=== PATIENT | male | born 1985 | race Caucasian/White ===

== ENCOUNTER 2016-12-08 19:39 | Emergency (ER) | payer MEDICAID ==
[~2016-12-08] VITALS: Ht 165.1 cm; Wt 81.5 kg
[~2016-12-08 19:39] MED LIST: IBUP800T25 PO; NAPR-688 PO; ONDA-43 PO; OXYC-281 PO
[2016-12-08 19:44] VITALS: Ht 165.1 cm; Wt 81.5 kg
[2016-12-08] MEDS ORDERED: SOD CHLORIDE 0.9% 1,000 ML IV STA (21:27)
[2016-12-08] MEDS ORDERED: KETOROLAC 30 MG INJ IV STA (21:27)
[2016-12-08] MEDS ORDERED: morphine 4 MG/ML VIAL IV STA (22:40)
--- NOTE | 2016-12-08 22:41 | RADRPT ---
PROCEDURE: Renal US. CLINICAL INDICATION: Flank pain. TECHNIQUE: Multiple sonographic images of the kidneys and urinary bladder were obtained. The imag es were reviewed on a PACS workstation. COMPARISON: No prior studies are available for comparison. FINDINGS: The kidneys are well visualized. The right kidney measures 12.9 cm. The left kidney measures 12.5 cm . There is mild right hydronephrosis. Multiple nonobstructing stones are noted in the right kidney. The urinary bladder is normal in appearance. IMPRESSION: 1. Mild right hydronephrosis. 2. Multiple nonobstructing stones in the right kidney. 3. Normal appearance of the left kidney and urinary bladder. RPTAT: HTAR .Gold Guido MD, Date Time Electronically viewed and signed by .Gold Guido MD, MD on 12/08/2016 22:40 .R/
[2016-12-08] MEDS ORDERED: CIPR500T4 PO (23:04)
[2016-12-08] MEDS ORDERED: ONDA4TAB14 PO (23:04)
[2016-12-08] MEDS ORDERED: IBUP-1542 PO (23:04)
[2016-12-08] MEDS ORDERED: HYDR-906 PO (23:04)
--- NOTE | 2016-12-08 23:26 | ERD ---
ER Documentation Chief Complaint Chief Complaint right flank pain x 4 days HPI Patient is a 31-year-old male with past medical history of bilateral nephrolithiasis who presents to the emergency department for concerns of right- sided flank pain and dysuria 4 days. States he had bilateral kidney stones 1.5 years ago. Patient states his pain feels the same as his previous kidney stone episode. Patient states the pain originates in his right flank and radiates down into his groin. Patient denies any nausea, vomiting, fever or chills. Patient does admit to dysuria however he denies any frequency urgency or hematuria. Denies any falls or trauma. Patient denies any lower back pain , saddle anesthesia, urinary incontinence, stool incontinence. ROS All systems reviewed and are negative except as per history of present illness. Medications Home Meds Active Scripts Ciprofloxacin Hcl* (Ciprofloxacin Hcl*) 500 Mg Tablet, 500 MG PO BID for 10 Days , TAB Prov:DAYAMI SANCHEZ PA-C 12/08/16 Ondansetron (Ondansetron Odt) 4 Mg Tab.rapdis, 4 MG PO Q6H Y for NAUSEA AND/OR VOMITING, #10 TAB Prov:DAYAMI SANCHEZ PA-C 12/08/16 Hydrocodone/Acetaminophen (Suring 5-325 Tablet) 1 Each Tablet, 1 TAB PO Q6H Y for PAIN, #7 TAB Prov:DAYAMI SANCHEZ PA-C 12/08/16 Ibuprofen* (Motrin*) 600 Mg Tab, 600 MG PO Q6, #20 TAB Prov:DAYAMI SANCHEZ PA-C 12/08/16 Naproxen* (Naproxen*) 500 Mg Tablet, 500 MG PO BID Y for PAIN, #30 TAB Prov:RAMYA HOLBROOK MD 08/19/14 Ondansetron Hcl* (Zofran*) 4 Mg Tab, 4 MG PO TID Y for NAUSEA AND OR VOMITING, # 14 TAB Prov:RAMYA HOLBROOK MD 08/19/14 Oxycodone Hcl-Acetaminophen* (Percocet*) 5-325 Mg Tablet, 1 TAB PO Q4H Y for PAIN, #12 TAB Prov:RAMYA HOLBROOK MD 08/19/14 Reported Medications Ibuprofen* (Ibuprofen*) 800 Mg Tab, 800 MG PO Q8 Y for PAIN, TAB 7/3/15 Allergies Allergies: Coded Allergies: No Known Allergy (Unverified , 12/08/16) PMhx/Soc History of Surgery: No Anesthesia Reaction: No Hx Neurological Disorder: No Hx Respiratory Disorders: No Hx Cardiac Disorders: No Hx Psychiatric Problems: No Hx Miscellaneous Medical Probl: Yes (KIDNEY STONES ) Hx Alcohol Use: Yes Hx Substance Use: No Hx Tobacco Use: No Smoking Status: Never smoker Physical Exam Vitals Vital Signs Date Time Temp Pulse Resp B/P Pulse Ox O2 Delivery O2 Flow Rate FiO2 12/08/16 19:44 98.7 92 20 136/83 99 Physical Exam GENERAL: Well-developed, well-nourished male. Appears in no acute distress. Aching in full sentences. HEAD: Normocephalic, atraumatic. EYES: Pupils are equally reactive bilaterally. EOMs grossly intact. No conjunctival erythema. ENT: Moist mucous membranes. No uvula deviation. No kissing tonsils. NECK: Supple. No meningismus. Normal range of motion of the neck. LUNG: Clear to auscultation bilaterally. No rhonchi, wheezing, rales or coarse breath sounds. HEART: Regular rate and rhythm. No murmurs, rubs or gallops. ABDOMEN: No scars, ecchymosis or rashes noted. Soft, nontender, and nondistended. Positive bowel sounds in all four quadrants. No rebound tenderness , no guarding. (-) McBurney's point tenderness. R sided CVA tenderness. BACK: No midline tenderness. EXTREMITIES: Equal pulses bilaterally. No peripheral clubbing, cyanosis or edema. No unilateral leg swelling. NEUROLOGIC: Alert and oriented. Moving all four extremities without any difficulty. Normal speech. Steady gait. SKIN: Normal color. Warm and dry. No rashes or lesions. Result Diagram: 12/08/16214412/08/162144 Results 24 hrs Laboratory Tests Test 12/08/16 21:45 White Blood Count 18.410^3/ul Red Blood Count 5.7010^6/ul Hemoglobin 16.4g/dl Hematocrit 50.9% Mean Corpuscular Volume 89.3fl Mean Corpuscular Hemoglobin 28.8pg Mean Corpuscular Hemoglobin Concent 32.2g/dl Red Cell Distribution Width 12.7% Platelet Count 87686^3/UL Mean Platelet Volume 11.4fl Neutrophils % 72.4% Lymphocytes % 17.4% Monocytes % 7.5% Eosinophils % 2.0% Basophils % 0.3% Nucleated Red Blood Cells % 0.0/100WBC Neutrophils # 13.310^3/ul Lymphocytes # 3.210^3/ul Monocytes # 1.410^3/ul Eosinophils # 0.410^3/ul Basophils # 0.110^3/ul Nucleated Red Blood Cells # 0.010^3/ul Urine Color YELLOW Urine Clarity CLEAR Urine pH 5.0 Urine Specific [place] 1.016 Urine Ketones NEGATIVEmg/dL Urine Nitrite NEGATIVEmg/dL Urine Bilirubin NEGATIVEmg/dL Urine Urobilinogen NEGATIVEmg/dL Urine Leukocyte Esterase NEGATIVELeu/ul Urine Microscopic RBC 28/HPF Urine Microscopic WBC 1/HPF Urine Hemoglobin 1+mg/dL Urine Glucose NEGATIVEmg/dL Urine Total Protein NEGATIVEmg/dl Sodium Level 142mmol/L Potassium Level 4.0mmol/L Chloride Level 101mmol/L Carbon Dioxide Level 30mmol/L Anion Gap 15 Blood Urea Nitrogen 17mg/dl Creatinine 1.20mg/dl Glucose Level 80mg/dl Calcium Level 9.5mg/dl Total Bilirubin 0.0mg/dl Direct Bilirubin 0.00mg/dl Indirect Bilirubin 0.0mg/dl Aspartate Amino Transf (AST/SGOT) 37IU/L Alanine Aminotransferase (ALT/SGPT) 76IU/L Alkaline Phosphatase 82IU/L Total Protein 8.4g/dl Albumin 4.7g/dl Globulin 3.70g/dl Albumin/Globulin Ratio 1.27 Lipase 145U/L Current Medications Medications (Trade) Dose Ordered Sig/Nichelle Route PRN Reason Start Time Stop Time Status Last Admin Dose Admin Sodium Chloride (NS) 1,000 ml @ 1,000 mls/hr Q1H STAT IV 12/08/16 21:27 12/08/16 22:26 DC 12/08/16 21:50 Ketorolac Tromethamine (Toradol) 30 mg ONCE STAT IV 12/08/16 21:27 12/08/16 21:29 DC 12/08/16 21:49 Morphine Sulfate (morphine) 4 mg ONCE STAT IV 12/08/16 22:40 12/08/16 22:41 DC 12/08/16 22:44 Procedures/MDM ED COURSE: The patient was stable throughout ED course. I kept the patient and/or family informed of laboratory and diagnostic imaging results throughout the ED course. DIAGNOSTIC IMAGING: Read by radiologist. Patient: WENDIE OSORIO : 1985 Age: 31 Sex: M [id number] DOS: 12/08/16 215 Ordering MD: DAYAMI SANCHEZ PA-C Location: [facility] Room/Bed: PROCEDURE: Renal US. CLINICAL INDICATION: Flank pain. TECHNIQUE: Multiple sonographic images of the kidneys and urinary bladder were obtained. The images were reviewed on a PACS workstation. COMPARISON: No prior studies are available for comparison. FINDINGS: The kidneys are well visualized. The right kidney measures 12.9 cm. The left kidney measures 12.5 cm. There is mild right hydronephrosis. Multiple nonobstructing stones are noted in the right kidney. The urinary bladder is normal in appearance. IMPRESSION: 1. Mild right hydronephrosis. 2. Multiple nonobstructing stones in the right kidney. 3. Normal appearance of the left kidney and urinary bladder. RPTAT: HTAR .Gold Guido MD, MD Date Time Electronically viewed and signed by .Gold Guido MD, MD on 12/08/2016 22:40 .R/ CC: DAYAMI SANCHEZ PA-C PROCEDURES: None. MEDICATIONS GIVEN: IV fluids, Toradol, morphine Patient tolerated medication well with no adverse reactions. Patient reported improvement in pain. MEDICAL DECISION MAKING: This is a 31-year-old male with a history of nephrolithiasis who presents the ED with concerns of right-sided flank pain and dysuria 4 days. Vital signs were reviewed. Patient was afebrile. CBC showed patient had a white count of 18.4. CMP was unremarkable. Patient's BUN and creatinine were within normal limits. Lipase was negative for pancreatitis. Renal ultrasound was obtained which showed mild right hydronephrosis. Multiple nonobstructing stones in the right kidney. Normal appearance of the left kidney and urinary bladder. I discussed the patient blood work and renal ultrasound findings with him and his . Explained to the patient that I am unable to rule out acute abdominal emergencies at this time given that CT scan was pending. Patient did not wish to stay for CT scan. Patient stated his symptoms had improved with receiving pain medication. Patient felt that his symptoms were related to his kidney stones and thus he wishes to go home. Patient was advised that if he had any new or worsening pain, fevers, chills, nausea or vomiting he should return to the emergency department immediately. Patient agrees with this plan. This time , the patient's presentation is most consistent with nephrolithiasis and right sided hydronephrosis. Discussed the case with my supervising physician, Dr. Holbrook, who advised me to treat the patient with a course of antibiotics as well as pain medication. Patient was advised to follow-up with a urologist on outpatient basis. Low suspicion for pancreatitis, pyelonephritis, diverticulitis, constipation, appendicitis. PRESCRIPTIONS: Ibuprofen, Suring, Zofran, ciprofloxacin DISCHARGE: At this time, patient is stable for discharge and outpatient management. Patient was given a copy of all imaging studies and blood work obtained today. I have instructed the patient to follow-up with his/her primary care physician in 1-2 days. If symptoms persist, patient may need to see a specialist for further examinations and testing. I have instructed the patient to promptly return to the ER at any time for any new or worsening symptoms including increased increased pain, fever, nausea, vomiting, urinary changes or weakness. The patient and/or family expressed understanding of and agreement with this plan. All questions were answered. Home care instructions were provided. Departure Diagnosis: Primary Impression: Nephrolithiasis Additional Impression: Hydronephrosis of right kidney Condition: Stable Patient Instructions: Identifying Kidney Stones Referrals: DARRELL BURDICK MD,MITCH BEAN MD,RACHEL LIND,DAI SANTIAGO MD,MARIANGEL GURROLA MD, MD= [facility] YOU HAVE RECEIVED A MEDICAL SCREENING EXAM AND THE RESULTS INDICATE THAT YOU DO NOT HAVE A CONDITION THAT REQUIRES URGENT TREATMENT IN THE EMERGENCY DEPARTMENT. FURTHER EVALUATION AND TREATMENT OF YOUR CONDITION CAN WAIT UNTIL YOU ARE SEEN IN YOUR DOCTORS OFFICE WITHIN THE NEXT 1-2 DAYS. IT IS YOUR RESPONSIBILITY TO MAKE AN APPOINTMENT FOR FOLOW-UP CARE. IF YOU HAVE A PRIMARY DOCTOR --you should call your primary doctor and schedule an appointment IF YOU DO NOT HAVE A PRIMARY DOCTOR YOU CAN CALL OUR PHYSICIAN REFERRAL HOTLINE AT IF YOU CAN NOT AFFORD TO SEE A PHYSICIAN YOU CAN CHOSE FROM THE FOLLOWING [facility] [address] [facility] [address] [facility] [address] [facility] [address] [facility] [address] [facility]. [facility] [address] [facility]. [facility] YOU HAVE RECEIVED A MEDICAL SCREENING EXAM AND THE RESULTS INDICATE THAT YOU DO NOT HAVE A CONDITION THAT REQUIRES URGENT TREATMENT IN THE EMERGENCY DEPARTMENT. FURTHER EVALUATION AND TREATMENT OF YOUR CONDITION CAN WAIT UNTIL YOU ARE SEEN IN YOUR DOCTORS OFFICE WITHIN THE NEXT 1-2 DAYS. IT IS YOUR RESPONSIBILITY TO MAKE AN APPOINTMENT FOR FOLOW-UP CARE. IF YOU HAVE A PRIMARY DOCTOR --you should call your primary doctor and schedule and appointment IF YOU DO NOT HAVE A PRIMARY DOCTOR YOU CAN CALL OUR PHYSICIAN REFERRAL HOTLINE AT . IF YOU CAN NOT AFFORD TO SEE A PHYSICIAN YOU CAN CHOSE FROM THE FOLLOWING [facility]: [facility] [address] [place] [address] [facility] [address] [place] [address] [facility] [address] [place] [address] Additional Instructions: Call your primary care doctor TOMORROW for an appointment during the next 1-2 days.See the doctor sooner or return here if your condition worsens before your appointment time. Follow up with urologist for management of your kidney stones. DAYAMI SANCHEZ PA-C Dec 08, 2016 23:25
--- NOTE | 2016-12-08 23:26 | ERD ---
ER Documentation Chief Complaint Chief Complaint right flank pain x 4 days HPI Patient is a 31-year-old male with past medical history of bilateral nephrolithiasis who presents to the emergency department for concerns of right- sided flank pain and dysuria 4 days. States he had bilateral kidney stones 1.5 years ago. Patient states his pain feels the same as his previous kidney stone episode. Patient states the pain originates in his right flank and radiates down into his groin. Patient denies any nausea, vomiting, fever or chills. Patient does admit to dysuria however he denies any frequency urgency or hematuria. Denies any falls or trauma. Patient denies any lower back pain , saddle anesthesia, urinary incontinence, stool incontinence. ROS All systems reviewed and are negative except as per history of present illness. Medications Home Meds Active Scripts Ciprofloxacin Hcl* (Ciprofloxacin Hcl*) 500 Mg Tablet, 500 MG PO BID for 10 Days , TAB Prov:DAYAMI SANCHEZ PA-C 12/08/16 Ondansetron (Ondansetron Odt) 4 Mg Tab.rapdis, 4 MG PO Q6H Y for NAUSEA AND/OR VOMITING, #10 TAB Prov:DAYAMI SANCHEZ PA-C 12/08/16 Hydrocodone/Acetaminophen (Ouray 5-325 Tablet) 1 Each Tablet, 1 TAB PO Q6H Y for PAIN, #7 TAB Prov:DAYAMI SANCHEZ PA-C 12/08/16 Ibuprofen* (Motrin*) 600 Mg Tab, 600 MG PO Q6, #20 TAB Prov:DAYAMI SANCHEZ PA-C 12/08/16 Naproxen* (Naproxen*) 500 Mg Tablet, 500 MG PO BID Y for PAIN, #30 TAB Prov:RAMYA HOLBROOK MD 08/19/14 Ondansetron Hcl* (Zofran*) 4 Mg Tab, 4 MG PO TID Y for NAUSEA AND OR VOMITING, # 14 TAB Prov:RAMYA HOLBROOK MD 08/19/14 Oxycodone Hcl-Acetaminophen* (Percocet*) 5-325 Mg Tablet, 1 TAB PO Q4H Y for PAIN, #12 TAB Prov:RAMYA HOLBROOK MD 08/19/14 Reported Medications Ibuprofen* (Ibuprofen*) 800 Mg Tab, 800 MG PO Q8 Y for PAIN, TAB 7/3/15 Allergies Allergies: Coded Allergies: No Known Allergy (Unverified , 12/08/16) PMhx/Soc History of Surgery: No Anesthesia Reaction: No Hx Neurological Disorder: No Hx Respiratory Disorders: No Hx Cardiac Disorders: No Hx Psychiatric Problems: No Hx Miscellaneous Medical Probl: Yes (KIDNEY STONES ) Hx Alcohol Use: Yes Hx Substance Use: No Hx Tobacco Use: No Smoking Status: Never smoker Physical Exam Vitals Vital Signs Date Time Temp Pulse Resp B/P Pulse Ox O2 Delivery O2 Flow Rate FiO2 12/08/16 19:44 98.7 92 20 136/83 99 Physical Exam GENERAL: Well-developed, well-nourished male. Appears in no acute distress. Aching in full sentences. HEAD: Normocephalic, atraumatic. EYES: Pupils are equally reactive bilaterally. EOMs grossly intact. No conjunctival erythema. ENT: Moist mucous membranes. No uvula deviation. No kissing tonsils. NECK: Supple. No meningismus. Normal range of motion of the neck. LUNG: Clear to auscultation bilaterally. No rhonchi, wheezing, rales or coarse breath sounds. HEART: Regular rate and rhythm. No murmurs, rubs or gallops. ABDOMEN: No scars, ecchymosis or rashes noted. Soft, nontender, and nondistended. Positive bowel sounds in all four quadrants. No rebound tenderness , no guarding. (-) McBurney's point tenderness. R sided CVA tenderness. BACK: No midline tenderness. EXTREMITIES: Equal pulses bilaterally. No peripheral clubbing, cyanosis or edema. No unilateral leg swelling. NEUROLOGIC: Alert and oriented. Moving all four extremities without any difficulty. Normal speech. Steady gait. SKIN: Normal color. Warm and dry. No rashes or lesions. Result Diagram: 12/08/16214412/08/162144 Results 24 hrs Laboratory Tests Test 12/08/16 21:45 White Blood Count 18.410^3/ul Red Blood Count 5.7010^6/ul Hemoglobin 16.4g/dl Hematocrit 50.9% Mean Corpuscular Volume 89.3fl Mean Corpuscular Hemoglobin 28.8pg Mean Corpuscular Hemoglobin Concent 32.2g/dl Red Cell Distribution Width 12.7% Platelet Count 20685^3/UL Mean Platelet Volume 11.4fl Neutrophils % 72.4% Lymphocytes % 17.4% Monocytes % 7.5% Eosinophils % 2.0% Basophils % 0.3% Nucleated Red Blood Cells % 0.0/100WBC Neutrophils # 13.310^3/ul Lymphocytes # 3.210^3/ul Monocytes # 1.410^3/ul Eosinophils # 0.410^3/ul Basophils # 0.110^3/ul Nucleated Red Blood Cells # 0.010^3/ul Urine Color YELLOW Urine Clarity CLEAR Urine pH 5.0 Urine Specific [place] 1.016 Urine Ketones NEGATIVEmg/dL Urine Nitrite NEGATIVEmg/dL Urine Bilirubin NEGATIVEmg/dL Urine Urobilinogen NEGATIVEmg/dL Urine Leukocyte Esterase NEGATIVELeu/ul Urine Microscopic RBC 28/HPF Urine Microscopic WBC 1/HPF Urine Hemoglobin 1+mg/dL Urine Glucose NEGATIVEmg/dL Urine Total Protein NEGATIVEmg/dl Sodium Level 142mmol/L Potassium Level 4.0mmol/L Chloride Level 101mmol/L Carbon Dioxide Level 30mmol/L Anion Gap 15 Blood Urea Nitrogen 17mg/dl Creatinine 1.20mg/dl Glucose Level 80mg/dl Calcium Level 9.5mg/dl Total Bilirubin 0.0mg/dl Direct Bilirubin 0.00mg/dl Indirect Bilirubin 0.0mg/dl Aspartate Amino Transf (AST/SGOT) 37IU/L Alanine Aminotransferase (ALT/SGPT) 76IU/L Alkaline Phosphatase 82IU/L Total Protein 8.4g/dl Albumin 4.7g/dl Globulin 3.70g/dl Albumin/Globulin Ratio 1.27 Lipase 145U/L Current Medications Medications (Trade) Dose Ordered Sig/Nichelle Route PRN Reason Start Time Stop Time Status Last Admin Dose Admin Sodium Chloride (NS) 1,000 ml @ 1,000 mls/hr Q1H STAT IV 12/08/16 21:27 12/08/16 22:26 DC 12/08/16 21:50 Ketorolac Tromethamine (Toradol) 30 mg ONCE STAT IV 12/08/16 21:27 12/08/16 21:29 DC 12/08/16 21:49 Morphine Sulfate (morphine) 4 mg ONCE STAT IV 12/08/16 22:40 12/08/16 22:41 DC 12/08/16 22:44 Procedures/MDM ED COURSE: The patient was stable throughout ED course. I kept the patient and/or family informed of laboratory and diagnostic imaging results throughout the ED course. DIAGNOSTIC IMAGING: Read by radiologist. Patient: WENDIE OSORIO : 1985 Age: 31 Sex: M [id number] DOS: 12/08/16 215 Ordering MD: DAYAMI SANCHEZ PA-C Location: [facility] Room/Bed: PROCEDURE: Renal US. CLINICAL INDICATION: Flank pain. TECHNIQUE: Multiple sonographic images of the kidneys and urinary bladder were obtained. The images were reviewed on a PACS workstation. COMPARISON: No prior studies are available for comparison. FINDINGS: The kidneys are well visualized. The right kidney measures 12.9 cm. The left kidney measures 12.5 cm. There is mild right hydronephrosis. Multiple nonobstructing stones are noted in the right kidney. The urinary bladder is normal in appearance. IMPRESSION: 1. Mild right hydronephrosis. 2. Multiple nonobstructing stones in the right kidney. 3. Normal appearance of the left kidney and urinary bladder. RPTAT: HTAR .Gold Guido MD, MD Date Time Electronically viewed and signed by .Gold Guido MD, MD on 12/08/2016 22:40 .R/ CC: DAYAMI SANCHEZ PA-C PROCEDURES: None. MEDICATIONS GIVEN: IV fluids, Toradol, morphine Patient tolerated medication well with no adverse reactions. Patient reported improvement in pain. MEDICAL DECISION MAKING: This is a 31-year-old male with a history of nephrolithiasis who presents the ED with concerns of right-sided flank pain and dysuria 4 days. Vital signs were reviewed. Patient was afebrile. CBC showed patient had a white count of 18.4. CMP was unremarkable. Patient's BUN and creatinine were within normal limits. Lipase was negative for pancreatitis. Renal ultrasound was obtained which showed mild right hydronephrosis. Multiple nonobstructing stones in the right kidney. Normal appearance of the left kidney and urinary bladder. I discussed the patient blood work and renal ultrasound findings with him and his . Explained to the patient that I am unable to rule out acute abdominal emergencies at this time given that CT scan was pending. Patient did not wish to stay for CT scan. Patient stated his symptoms had improved with receiving pain medication. Patient felt that his symptoms were related to his kidney stones and thus he wishes to go home. Patient was advised that if he had any new or worsening pain, fevers, chills, nausea or vomiting he should return to the emergency department immediately. Patient agrees with this plan. This time , the patient's presentation is most consistent with nephrolithiasis and right sided hydronephrosis. Discussed the case with my supervising physician, Dr. Holbrook, who advised me to treat the patient with a course of antibiotics as well as pain medication. Patient was advised to follow-up with a urologist on outpatient basis. Low suspicion for pancreatitis, pyelonephritis, diverticulitis, constipation, appendicitis. PRESCRIPTIONS: Ibuprofen, Ouray, Zofran, ciprofloxacin DISCHARGE: At this time, patient is stable for discharge and outpatient management. Patient was given a copy of all imaging studies and blood work obtained today. I have instructed the patient to follow-up with his/her primary care physician in 1-2 days. If symptoms persist, patient may need to see a specialist for further examinations and testing. I have instructed the patient to promptly return to the ER at any time for any new or worsening symptoms including increased increased pain, fever, nausea, vomiting, urinary changes or weakness. The patient and/or family expressed understanding of and agreement with this plan. All questions were answered. Home care instructions were provided. Departure Diagnosis: Primary Impression: Nephrolithiasis Additional Impression: Hydronephrosis of right kidney Condition: Stable Patient Instructions: Identifying Kidney Stones Referrals: DARRELL BURDICK MD,MITCH BEAN MD,RACHEL LIND,DAI SANTIAGO MD,MARIANGEL GURROLA MD, MD= [facility] YOU HAVE RECEIVED A MEDICAL SCREENING EXAM AND THE RESULTS INDICATE THAT YOU DO NOT HAVE A CONDITION THAT REQUIRES URGENT TREATMENT IN THE EMERGENCY DEPARTMENT. FURTHER EVALUATION AND TREATMENT OF YOUR CONDITION CAN WAIT UNTIL YOU ARE SEEN IN YOUR DOCTORS OFFICE WITHIN THE NEXT 1-2 DAYS. IT IS YOUR RESPONSIBILITY TO MAKE AN APPOINTMENT FOR FOLOW-UP CARE. IF YOU HAVE A PRIMARY DOCTOR --you should call your primary doctor and schedule an appointment IF YOU DO NOT HAVE A PRIMARY DOCTOR YOU CAN CALL OUR PHYSICIAN REFERRAL HOTLINE AT IF YOU CAN NOT AFFORD TO SEE A PHYSICIAN YOU CAN CHOSE FROM THE FOLLOWING [facility] [address] [facility] [address] [facility] [address] [facility] [address] [facility] [address] [facility]. [facility] [address] [facility]. [facility] YOU HAVE RECEIVED A MEDICAL SCREENING EXAM AND THE RESULTS INDICATE THAT YOU DO NOT HAVE A CONDITION THAT REQUIRES URGENT TREATMENT IN THE EMERGENCY DEPARTMENT. FURTHER EVALUATION AND TREATMENT OF YOUR CONDITION CAN WAIT UNTIL YOU ARE SEEN IN YOUR DOCTORS OFFICE WITHIN THE NEXT 1-2 DAYS. IT IS YOUR RESPONSIBILITY TO MAKE AN APPOINTMENT FOR FOLOW-UP CARE. IF YOU HAVE A PRIMARY DOCTOR --you should call your primary doctor and schedule and appointment IF YOU DO NOT HAVE A PRIMARY DOCTOR YOU CAN CALL OUR PHYSICIAN REFERRAL HOTLINE AT . IF YOU CAN NOT AFFORD TO SEE A PHYSICIAN YOU CAN CHOSE FROM THE FOLLOWING [facility]: [facility] [address] [place] [address] [facility] [address] [place] [address] [facility] [address] [place] [address] Additional Instructions: Call your primary care doctor TOMORROW for an appointment during the next 1-2 days.See the doctor sooner or return here if your condition worsens before your appointment time. Follow up with urologist for management of your kidney stones. DAYAMI SANCHEZ PA-C Dec 08, 2016 23:25
--- NOTE | 2016-12-08 23:26 | ERD ---
ER Documentation Chief Complaint Chief Complaint right flank pain x 4 days HPI Patient is a 31-year-old male with past medical history of bilateral nephrolithiasis who presents to the emergency department for concerns of right- sided flank pain and dysuria 4 days. States he had bilateral kidney stones 1.5 years ago. Patient states his pain feels the same as his previous kidney stone episode. Patient states the pain originates in his right flank and radiates down into his groin. Patient denies any nausea, vomiting, fever or chills. Patient does admit to dysuria however he denies any frequency urgency or hematuria. Denies any falls or trauma. Patient denies any lower back pain , saddle anesthesia, urinary incontinence, stool incontinence. ROS All systems reviewed and are negative except as per history of present illness. Medications Home Meds Active Scripts Ciprofloxacin Hcl* (Ciprofloxacin Hcl*) 500 Mg Tablet, 500 MG PO BID for 10 Days , TAB Prov:DAYAMI SANCHEZ PA-C 12/08/16 Ondansetron (Ondansetron Odt) 4 Mg Tab.rapdis, 4 MG PO Q6H Y for NAUSEA AND/OR VOMITING, #10 TAB Prov:DAYAMI SANCHEZ PA-C 12/08/16 Hydrocodone/Acetaminophen (Hancock 5-325 Tablet) 1 Each Tablet, 1 TAB PO Q6H Y for PAIN, #7 TAB Prov:DAYAMI SANCHEZ PA-C 12/08/16 Ibuprofen* (Motrin*) 600 Mg Tab, 600 MG PO Q6, #20 TAB Prov:DAYAMI SANCHEZ PA-C 12/08/16 Naproxen* (Naproxen*) 500 Mg Tablet, 500 MG PO BID Y for PAIN, #30 TAB Prov:RAMYA HOLBROKO MD 08/19/14 Ondansetron Hcl* (Zofran*) 4 Mg Tab, 4 MG PO TID Y for NAUSEA AND OR VOMITING, # 14 TAB Prov:RAMYA HOLBROOK MD 08/19/14 Oxycodone Hcl-Acetaminophen* (Percocet*) 5-325 Mg Tablet, 1 TAB PO Q4H Y for PAIN, #12 TAB Prov:RAMYA HOLBROOK MD 08/19/14 Reported Medications Ibuprofen* (Ibuprofen*) 800 Mg Tab, 800 MG PO Q8 Y for PAIN, TAB 7/3/15 Allergies Allergies: Coded Allergies: No Known Allergy (Unverified , 12/08/16) PMhx/Soc History of Surgery: No Anesthesia Reaction: No Hx Neurological Disorder: No Hx Respiratory Disorders: No Hx Cardiac Disorders: No Hx Psychiatric Problems: No Hx Miscellaneous Medical Probl: Yes (KIDNEY STONES ) Hx Alcohol Use: Yes Hx Substance Use: No Hx Tobacco Use: No Smoking Status: Never smoker Physical Exam Vitals Vital Signs Date Time Temp Pulse Resp B/P Pulse Ox O2 Delivery O2 Flow Rate FiO2 12/08/16 19:44 98.7 92 20 136/83 99 Physical Exam GENERAL: Well-developed, well-nourished male. Appears in no acute distress. Aching in full sentences. HEAD: Normocephalic, atraumatic. EYES: Pupils are equally reactive bilaterally. EOMs grossly intact. No conjunctival erythema. ENT: Moist mucous membranes. No uvula deviation. No kissing tonsils. NECK: Supple. No meningismus. Normal range of motion of the neck. LUNG: Clear to auscultation bilaterally. No rhonchi, wheezing, rales or coarse breath sounds. HEART: Regular rate and rhythm. No murmurs, rubs or gallops. ABDOMEN: No scars, ecchymosis or rashes noted. Soft, nontender, and nondistended. Positive bowel sounds in all four quadrants. No rebound tenderness , no guarding. (-) McBurney's point tenderness. R sided CVA tenderness. BACK: No midline tenderness. EXTREMITIES: Equal pulses bilaterally. No peripheral clubbing, cyanosis or edema. No unilateral leg swelling. NEUROLOGIC: Alert and oriented. Moving all four extremities without any difficulty. Normal speech. Steady gait. SKIN: Normal color. Warm and dry. No rashes or lesions. Result Diagram: 12/08/16214412/08/162144 Results 24 hrs Laboratory Tests Test 12/08/16 21:45 White Blood Count 18.410^3/ul Red Blood Count 5.7010^6/ul Hemoglobin 16.4g/dl Hematocrit 50.9% Mean Corpuscular Volume 89.3fl Mean Corpuscular Hemoglobin 28.8pg Mean Corpuscular Hemoglobin Concent 32.2g/dl Red Cell Distribution Width 12.7% Platelet Count 07054^3/UL Mean Platelet Volume 11.4fl Neutrophils % 72.4% Lymphocytes % 17.4% Monocytes % 7.5% Eosinophils % 2.0% Basophils % 0.3% Nucleated Red Blood Cells % 0.0/100WBC Neutrophils # 13.310^3/ul Lymphocytes # 3.210^3/ul Monocytes # 1.410^3/ul Eosinophils # 0.410^3/ul Basophils # 0.110^3/ul Nucleated Red Blood Cells # 0.010^3/ul Urine Color YELLOW Urine Clarity CLEAR Urine pH 5.0 Urine Specific [place] 1.016 Urine Ketones NEGATIVEmg/dL Urine Nitrite NEGATIVEmg/dL Urine Bilirubin NEGATIVEmg/dL Urine Urobilinogen NEGATIVEmg/dL Urine Leukocyte Esterase NEGATIVELeu/ul Urine Microscopic RBC 28/HPF Urine Microscopic WBC 1/HPF Urine Hemoglobin 1+mg/dL Urine Glucose NEGATIVEmg/dL Urine Total Protein NEGATIVEmg/dl Sodium Level 142mmol/L Potassium Level 4.0mmol/L Chloride Level 101mmol/L Carbon Dioxide Level 30mmol/L Anion Gap 15 Blood Urea Nitrogen 17mg/dl Creatinine 1.20mg/dl Glucose Level 80mg/dl Calcium Level 9.5mg/dl Total Bilirubin 0.0mg/dl Direct Bilirubin 0.00mg/dl Indirect Bilirubin 0.0mg/dl Aspartate Amino Transf (AST/SGOT) 37IU/L Alanine Aminotransferase (ALT/SGPT) 76IU/L Alkaline Phosphatase 82IU/L Total Protein 8.4g/dl Albumin 4.7g/dl Globulin 3.70g/dl Albumin/Globulin Ratio 1.27 Lipase 145U/L Current Medications Medications (Trade) Dose Ordered Sig/Nichelle Route PRN Reason Start Time Stop Time Status Last Admin Dose Admin Sodium Chloride (NS) 1,000 ml @ 1,000 mls/hr Q1H STAT IV 12/08/16 21:27 12/08/16 22:26 DC 12/08/16 21:50 Ketorolac Tromethamine (Toradol) 30 mg ONCE STAT IV 12/08/16 21:27 12/08/16 21:29 DC 12/08/16 21:49 Morphine Sulfate (morphine) 4 mg ONCE STAT IV 12/08/16 22:40 12/08/16 22:41 DC 12/08/16 22:44 Procedures/MDM ED COURSE: The patient was stable throughout ED course. I kept the patient and/or family informed of laboratory and diagnostic imaging results throughout the ED course. DIAGNOSTIC IMAGING: Read by radiologist. Patient: WENDIE OSORIO : 1985 Age: 31 Sex: M [id number] DOS: 12/08/16 215 Ordering MD: DAYAMI SANCHEZ PA-C Location: [facility] Room/Bed: PROCEDURE: Renal US. CLINICAL INDICATION: Flank pain. TECHNIQUE: Multiple sonographic images of the kidneys and urinary bladder were obtained. The images were reviewed on a PACS workstation. COMPARISON: No prior studies are available for comparison. FINDINGS: The kidneys are well visualized. The right kidney measures 12.9 cm. The left kidney measures 12.5 cm. There is mild right hydronephrosis. Multiple nonobstructing stones are noted in the right kidney. The urinary bladder is normal in appearance. IMPRESSION: 1. Mild right hydronephrosis. 2. Multiple nonobstructing stones in the right kidney. 3. Normal appearance of the left kidney and urinary bladder. RPTAT: HTAR .Gold Guido MD, MD Date Time Electronically viewed and signed by .Gold Guido MD, MD on 12/08/2016 22:40 .R/ CC: DAYAMI SANCHEZ PA-C PROCEDURES: None. MEDICATIONS GIVEN: IV fluids, Toradol, morphine Patient tolerated medication well with no adverse reactions. Patient reported improvement in pain. MEDICAL DECISION MAKING: This is a 31-year-old male with a history of nephrolithiasis who presents the ED with concerns of right-sided flank pain and dysuria 4 days. Vital signs were reviewed. Patient was afebrile. CBC showed patient had a white count of 18.4. CMP was unremarkable. Patient's BUN and creatinine were within normal limits. Lipase was negative for pancreatitis. Renal ultrasound was obtained which showed mild right hydronephrosis. Multiple nonobstructing stones in the right kidney. Normal appearance of the left kidney and urinary bladder. I discussed the patient blood work and renal ultrasound findings with him and his . Explained to the patient that I am unable to rule out acute abdominal emergencies at this time given that CT scan was pending. Patient did not wish to stay for CT scan. Patient stated his symptoms had improved with receiving pain medication. Patient felt that his symptoms were related to his kidney stones and thus he wishes to go home. Patient was advised that if he had any new or worsening pain, fevers, chills, nausea or vomiting he should return to the emergency department immediately. Patient agrees with this plan. This time , the patient's presentation is most consistent with nephrolithiasis and right sided hydronephrosis. Discussed the case with my supervising physician, Dr. Holbrook, who advised me to treat the patient with a course of antibiotics as well as pain medication. Patient was advised to follow-up with a urologist on outpatient basis. Low suspicion for pancreatitis, pyelonephritis, diverticulitis, constipation, appendicitis. PRESCRIPTIONS: Ibuprofen, Hancock, Zofran, ciprofloxacin DISCHARGE: At this time, patient is stable for discharge and outpatient management. Patient was given a copy of all imaging studies and blood work obtained today. I have instructed the patient to follow-up with his/her primary care physician in 1-2 days. If symptoms persist, patient may need to see a specialist for further examinations and testing. I have instructed the patient to promptly return to the ER at any time for any new or worsening symptoms including increased increased pain, fever, nausea, vomiting, urinary changes or weakness. The patient and/or family expressed understanding of and agreement with this plan. All questions were answered. Home care instructions were provided. Departure Diagnosis: Primary Impression: Nephrolithiasis Additional Impression: Hydronephrosis of right kidney Condition: Stable Patient Instructions: Identifying Kidney Stones Referrals: DARRELL BURDICK MD,MITCH BEAN MD,RACHEL LIND,DAI SANTIAGO MD,MARIANGEL GURROLA MD, MD= [facility] YOU HAVE RECEIVED A MEDICAL SCREENING EXAM AND THE RESULTS INDICATE THAT YOU DO NOT HAVE A CONDITION THAT REQUIRES URGENT TREATMENT IN THE EMERGENCY DEPARTMENT. FURTHER EVALUATION AND TREATMENT OF YOUR CONDITION CAN WAIT UNTIL YOU ARE SEEN IN YOUR DOCTORS OFFICE WITHIN THE NEXT 1-2 DAYS. IT IS YOUR RESPONSIBILITY TO MAKE AN APPOINTMENT FOR FOLOW-UP CARE. IF YOU HAVE A PRIMARY DOCTOR --you should call your primary doctor and schedule an appointment IF YOU DO NOT HAVE A PRIMARY DOCTOR YOU CAN CALL OUR PHYSICIAN REFERRAL HOTLINE AT IF YOU CAN NOT AFFORD TO SEE A PHYSICIAN YOU CAN CHOSE FROM THE FOLLOWING [facility] [address] [facility] [address] [facility] [address] [facility] [address] [facility] [address] [facility] [facility] [address] [facility]. [facility] YOU HAVE RECEIVED A MEDICAL SCREENING EXAM AND THE RESULTS INDICATE THAT YOU DO NOT HAVE A CONDITION THAT REQUIRES URGENT TREATMENT IN THE EMERGENCY DEPARTMENT. FURTHER EVALUATION AND TREATMENT OF YOUR CONDITION CAN WAIT UNTIL YOU ARE SEEN IN YOUR DOCTORS OFFICE WITHIN THE NEXT 1-2 DAYS. IT IS YOUR RESPONSIBILITY TO MAKE AN APPOINTMENT FOR FOLOW-UP CARE. IF YOU HAVE A PRIMARY DOCTOR --you should call your primary doctor and schedule and appointment IF YOU DO NOT HAVE A PRIMARY DOCTOR YOU CAN CALL OUR PHYSICIAN REFERRAL HOTLINE AT . IF YOU CAN NOT AFFORD TO SEE A PHYSICIAN YOU CAN CHOSE FROM THE FOLLOWING [facility]: [facility] [address] [place] [address] [facility] [address] [place] [address] [facility] [address] [place] [address] Additional Instructions: Call your primary care doctor TOMORROW for an appointment during the next 1-2 days.See the doctor sooner or return here if your condition worsens before your appointment time. Follow up with urologist for management of your kidney stones. DAYAMI SANCHEZ PA-C Dec 08, 2016 23:25
== END 2016-12-08 23:16 | disposition home or self-care (01) ==
LOC: FTE 19:39
DX: N13.2 Hydronephrosis with renal and ureteral calculous obstruction (principal)
CPT/HCPCS: 36415; 76775; 80053; 81001; 83690; 85025; 96374; 96375; J1885; J2270; J7030; Z7502